=== PATIENT | male | born 1965 | race Caucasian/White ===

== ENCOUNTER → 2020-11-10 12:25 | Outpatient (CLI) | payer MEDICAID, SELFPAY ==
[2020-11-02 14:05] VITALS: BMI 21.5
[2020-11-10 12:30] VITALS: PULSE 84; PULSE 86; PULSE 87; PULSE 89; PULSE 90; PULSE 91; PULSE 93; O2SAT 97; O2SAT 98
--- NOTE | 2020-11-11 08:50 | PCM.PSN.6M ---
PSN 6 Minute Walk Test - 6 Minute Walk Test 6 Minute Walk Test: 6 Minute Walk Test PSN:6-Minute Walk Test Start: 11/10/20 12:48 Freq: Status: Active Protocol: [id number] Document 11/10/20 12:30 EW (Rec: 11/10/20 12:51 EW [id number]) 6 Minute Walk Test Date Performed 11/10/20 Time Performed 12:30 Height 5 ft 10 in Weight: 150 lb Weight in Pounds 150.[address]: Misael Roe Assistive device used: None Pre-test Oxygen Delivery Method Room Air Pulse Ox (%) 98 Pulse Rate (60-100 beats/min) 84 Dyspnea Kelly Scale (0-10) 0 Exertion Kelly Scale (6-20) 8 1st minute Oxygen Delivery Method Room Air Pulse Ox (%) 98 Pulse Rate (60-100 beats/min) 93 2nd minute Oxygen Delivery Method Room Air Pulse Ox (%) 97 Pulse Rate (60-100 beats/min) 87 3rd minute Oxygen Delivery Method Room Air Pulse Ox (%) 97 Pulse Rate (60-100 beats/min) 91 4th minute Oxygen Delivery Method Room Air Pulse Ox (%) 97 Pulse Rate (60-100 beats/min) 86 5th minute Oxygen Delivery Method Room Air Pulse Ox (%) 97 Pulse Rate (60-100 beats/min) 86 6th minute Oxygen Delivery Method Room Air Pulse Ox (%) 98 Pulse Rate (60-100 beats/min) 89 Post-test Oxygen Delivery Method Room Air Pulse Ox (%) 98 Pulse Rate (60-100 beats/min) 90 Dyspnea Kelly Scale (0-10) 1 Exertion Kelly Scale (6-20) 8 Full Laps Walked 22 Partial Lap, Number of Tiles Walked 0 Total Distance Walked (ft) 1298 - Interpretation Interpretation: The patient ambulated 1298 feet over the course of 6 minutes beginning on room air without assistive devices or breaks. Pretesting oxygen saturation was noted to be 98% on room air. With ambulation, the emil oxygen saturation was 97%. There was no significant exertional oxygen desaturation. - Recommendations Recommendations: There is no indication for the use of supplemental oxygen at this time.
== END ==
PROVIDERS: PCP Preventive Medicine Occupational Medicine; Referring Provider Internal Medicine Critical Care Medicine; Visit Provider Internal Medicine Critical Care Medicine
DX: J44.9 Chronic obstructive pulmonary disease, unspecified (principal); F17.211 Nicotine dependence, cigarettes, in remission
CPT/HCPCS: 94618

== ENCOUNTER → 2020-11-23 10:27 | Outpatient (CLI) | payer MEDICAID, SELFPAY ==
[2020-11-02 14:05] VITALS: BMI 21.5
--- NOTE | 2020-11-23 13:47 | PFT ---
INTRODUCTION: The patient is a 55-year-old male that presents for pulmonary function studies secondary to a diagnosis of COPD. Respiratory therapy reports good patient effort. Bronchodilators were used during testing. INTERPRETATION: Forced expiration spirometry demonstrates the presence of a moderate large airways obstructive ventilatory defect. There was a significant response to aerosolized bronchodilators. Spirograms are of good quality and plateau gradually indicating slow emptying of the lungs. Body plethysmography was performed and reveals an elevated RV to 133% of predicted, indicative of underlying air trapping. Diffusing capacity by single breath CO is within normal limits. IMPRESSION: Partially reversible moderate large airways obstructive ventilatory defect with associated air trapping and preserved diffusing capacity.
== END ==
PROVIDERS: PCP Preventive Medicine Occupational Medicine; Referring Provider Internal Medicine Critical Care Medicine; Visit Provider Internal Medicine Critical Care Medicine
DX: J44.9 Chronic obstructive pulmonary disease, unspecified (principal); F17.211 Nicotine dependence, cigarettes, in remission
CPT/HCPCS: 94060; 94726; 94729

== ENCOUNTER → 2021-04-21 | Outpatient (CLI) | payer MEDICAID, SELFPAY | END | disposition home or self-care (01) | LOC: LABSPEC 15:41 | PROVIDERS: PCP Preventive Medicine Occupational Medicine; Visit Provider Physician Assistant Surgical | DX: Z20.822 Contact with and (suspected) exposure to COVID-19 (principal) | CPT/HCPCS: 87635; U0005; U0003 ==

== ENCOUNTER 2021-10-17 08:12 | Outpatient (CLI) | payer MEDICAID, SELFPAY ==
--- NOTE | 2021-10-17 08:14 | CT_ITS ---
STUDY: CT CHEST WITHOUT CONTRAST- LOW DOSE SCREENING PROTOCOL REASON FOR EXAM: Male, 56 years old. Current smoker. 120 pack per year history. No current symptoms of lung cancer or pulmonary infection. Shared decision-making with referring PCP documented in patient''s record. RADIATION DOSAGE (If Supplied By Facility): CTDIvol = ( 2.01 ) mGy, DLP = ( 69.72 ) mGycm TECHNIQUE: Low dose screening CT examination performed from the base of the neck to the upper abdomen. Sagittal and coronal reformatted images performed. Sagittal and coronal MIP images provided. The measurements provided are average, rounded measurements per ACR guidelines. COMPARISON: None. FINDINGS: Mild emphysema. There is no demonstrated pleural abnormality. Normal heart and pericardium. There are calcifications of the coronary arteries. Normal mediastinum. Normal hilar regions. Normal unenhanced pulmonary arteries. Normal aorta arch and descending thoracic aorta. Normal osseous structures. There is no demonstrated abnormality of the visualized upper abdomen. CT/Low Dose CT Lung Screening IMPRESSION: 1. No significant indeterminate incidental findings requiring additional imaging. 2. Incidental findings include mild emphysema. ASSESSMENT CATEGORY: LungRADS 1 - Negative. Continue annual screening with LDCT in 12 months, per established ACR guidelines. Electronically Signed: Lv Velazco MD at 9:59 EDT ,
== END 2021-10-17 23:59 | disposition home or self-care (01) ==
LOC: CT 08:13
PROVIDERS: PCP Preventive Medicine Occupational Medicine; Referring Provider Family Medicine; Visit Provider Family Medicine
DX: F17.210 Nicotine dependence, cigarettes, uncomplicated (principal)
CPT/HCPCS: 71271

== ENCOUNTER → 2023-11-05 | Outpatient (CLI) | payer MEDICAID, SELFPAY ==
--- NOTE | 2023-11-05 07:31 | CT_ITS ---
STUDY: LOW DOSE CT LUNG CANCER SCREENING REASON FOR EXAM: Male, 58 years old. h/o tobacco dependency. Patient smoked 2 packs per day for 50 years. RADIATION DOSAGE (If Supplied By Facility): CTDIvol = ( 2.01 ) mGy, DLP = ( 70.22 ) mGycm TECHNIQUE: No contrast was administered. Low dose technique was utilized (average mAS-38 and kVp 120). 1.25 mm axial source images with a slice interval of 1.25-mm were reconstructed in lung windows. 2.5 mm axial source images with a slice interval of 2.5-mm were reconstructed in lung windows. 5.0 mm axial source images with a slice interval of 5.0-mm were reconstructed in soft tissue windows. COMPARISON: Comparison is made with prior examination October 17, 2021. NODULES: No suspicious nodules are seen. Emphysema: Mild emphysematous changes. Endobronchial lesion: None Aorta: Mild plaque formation of the aortic arch. CORONARY ARTERIES: Coronary artery calcification is seen. Heart: Unremarkable Pulmonary artery: Unremarkable Mediastinal nodes: Calcified left hilar lymph nodes. Other chest and abdominal findings: CT/Low Dose CT Lung Screening IMPRESSION: Lung-RADS category 2 - Continue annual screening with LDCT in 12 months. IMPORTANT NOTES FOR USE: ACR Lung-RADS Version 1.1 Assessment Categories Release Date: 2018 Category: Coded 0-4 bases on nodule(s) with highest degree of suspicion. Negative screen is defined as categories 1 and 2; a positive screen is defined as categories 3 and 4. Category 3 and 4A nodules that are unchanged on interval CT should be coded as category 2, and individuals returned to screening in 12 months. Category 4X: Category 3 or 4 nodules with additional imaging findings that increase the suspicion of lung cancer, such as spiculation, GGN that doubles in size in 1 year, enlarged lymph notes, etc. Category Modifiers: S (significant finding unrelated to lung cancer) Electronically Signed: Juanjo Gray MD at 15:21 EDT ,
== END | disposition home or self-care (01) ==
LOC: CT 07:30
PROVIDERS: PCP Preventive Medicine Occupational Medicine; Referring Provider Internal Medicine Critical Care Medicine; Visit Provider Internal Medicine Critical Care Medicine
DX: F17.210 Nicotine dependence, cigarettes, uncomplicated (principal)
CPT/HCPCS: 71271